=== PATIENT | female | born 1995 | race Caucasian/White ===

== ENCOUNTER → 2024-12-02 | Outpatient (CLI) | payer OTHER ==
[~2024-12-02] MED LIST: Bactrim Ds Tab1 EACH PO; Cipro500 MG PO; Pyridium100 MG PO
[2024-12-03 12:34] LABS: Bacterial Vaginosis PCR Negative (NEGATIVE); Candida Group, PCR NOT DETECTED (NOT DETECT)
[2024-12-03 12:36] LABS: Candida glabrata-krusei, PCR DETECTED (NOT DETECT)
[2024-12-03 14:09] LABS: Chlamydia Trachomatis Vaginal NOT DETECTED (NOT DETECT); Neisseria Gonorrhoea Vaginal NOT DETECTED (NOT DETECT)
== END | disposition home or self-care (01) ==
LOC: LAB 18:59 → LAB SHORT 18:59
PROVIDERS: Registered Nurse Community Health
DX: Z20.2 Contact with and (suspected) exposure to infections with a predominantly sexual mode of transmission (principal)
CPT/HCPCS: 81515; 87491; 87591

== ENCOUNTER 2025-07-21 21:03 | Emergency (ER) | payer OTHER ==
[~2025-07-21] VITALS: Ht 149.9 cm; Wt 74.8 kg
[2025-07-21 22:10] VITALS: BP 130/91
== END 2025-07-22 00:01 | disposition home or self-care (01) ==
LOC: ER 21:03
DX: S93.402A Sprain of unspecified ligament of left ankle, initial encounter (principal); Z59.89 Other problems related to housing and economic circumstances; Z88.8 Allergy status to other drugs, medicaments and biological substances; Z79.899 Other long term (current) drug therapy; X50.1XXA Overexertion from prolonged static or awkward postures, initial encounter; Y92.003 Bedroom of unspecified non-institutional (private) residence as the place of occurrence of the external cause
CPT/HCPCS: 73610; 99283-25; A9270